=== PATIENT | male | born 1950 | race Caucasian/White ===

== ENCOUNTER → 2020-05-03 10:31 | Outpatient (BNVA) | payer MEDICARE, SELFPAY | PROVIDERS: PCP Family Medicine; Visit Provider Urology | DX: N40.1 Benign prostatic hyperplasia with lower urinary tract symptoms (principal); N13.8 Other obstructive and reflux uropathy; R35.1 Nocturia | CPT/HCPCS: Q3014 ==

== ENCOUNTER → 2021-06-12 08:26 | Outpatient (BNVA) | payer MEDICARE, BC, OTHER, SELFPAY | PROVIDERS: PCP Family Medicine; Visit Provider Urology | DX: N40.1 Benign prostatic hyperplasia with lower urinary tract symptoms (principal); N13.8 Other obstructive and reflux uropathy; R35.1 Nocturia | CPT/HCPCS: Q3014 ==

== ENCOUNTER → 2022-06-13 09:01 | Outpatient (BNVA) | payer MEDICARE, BC, OTHER, SELFPAY | PROVIDERS: PCP Family Medicine; Visit Provider Urology | DX: N40.1 Benign prostatic hyperplasia with lower urinary tract symptoms (principal); N13.8 Other obstructive and reflux uropathy; R35.1 Nocturia; R97.20 Elevated prostate specific antigen [PSA] | CPT/HCPCS: 51798; 99212 ==

== ENCOUNTER 2023-06-17 09:08 | Outpatient (AMB) | payer MEDICARE, BC, OTHER, SELFPAY ==
--- NOTE | 2023-06-17 09:26 | A.OFFVIS_ITS ---
Intake Intake Visit Reasons: 1Y PSA(set)Confirmed Intake Note: Patient is Present for Follow Up PSA/PVR Urology Medication: None Antibiotic Allergies:None Blood Thinners: Aspirin Confirmed Pharmacy: [facility] Reports no new Medications PVR: 47 Allergies No Known Allergies Allergy (Verified 06/17/23 09:29) Medication List - Last Reconciled 06/17/23 by Golden Lazo MD aspirin (Adult Low Dose Aspirin) 81 mg PO DAILY atorvastatin 80 mg PO BEDTIME finasteride 5 mg PO DAILY 90 days lisinopril 40 mg PO DAILY metoprolol succinate ER 50 mg PO DAILY nifedipine ER 30 mg PO DAILY HPI HPI Comments History of Present Illness Details David Atkins is a very pleasant male. He is a patient of Dr Godoy. He is seen for the following urologic conditions - lower urinary tract symptoms PSA rise to 5.1 Urinary parameters normal Discussed threshold for biopsy Will trial 5 AR with repeat PSA in 6 months SUN 2+ soft Elevated PSA/Abnormal SUN: Review in 12 months Current management is observation. Laboratory investigations include a total PSA evaluation December 2010 2.4, March 2011 2.1, September 2011 4.6, November 2011 2.2, May 2012 2.7, November 2012 2.9, November 2013 2.4, November 2015 3.2, September 2016 3.2, 02/28 3.2, 03/01 2.5, 03/02 2.8., 03/03 3.0, 06/05 3.5 (04/02 4.0), 06/05 4.0, 06/07 5.1 Imaging investigations include a transrectal ultrasound No a prostate MRI No Individualized Prostate Cancer Risk Calculator 5-10% high risk, Would like to continue with observation and understands and accepts the risks of a possible delay in diagnosis. A TRUS biopsy has not been performed Symptoms include weak stream, nocturia, x 2, and are stable 03/02 , weak stream, nocturia, x 2, x 3, and are worsening. - 05/03 nocturia 1-2 improving Overall symptoms are mild. His prior IPSS was mild. [facility] Medical History HTN (hypertension) Nocturia Benign prostatic hyperplasia without lower urinary tract symptoms Elevated PSA Review of Systems Const Denies chills and Denies fever(s) Card Reports no additional complaints and Denies syncope Resp Denies cough GI Denies abdominal pain and Denies heartburn Reports as per HPI and Denies change in libido Neuro Denies syncope Psych Denies change in libido Endo Denies change in libido Physical Exam Const General: cooperative, healthy appearing, comfortable and no acute distress Orientation/consciousness: patient oriented x3 HEENT Face and sinus: Yes normal facial exam Mouth: moist mucous membranes Neck Neck: Yes normal visual inspection, Yes full ROM and Yes trachea midline Chest Chest palpation & inspection: normal inspection of the chest Resp Effort & Inspection: normal respiratory effort, able to speak in complete sentences and no respiratory distress GI Inspection: Yes normal to inspection Rectal Exam - Male: Yes normal sphincter tone and Yes prostate normal Male General Exam: Yes normal external exam Penis: normal penis and circumcised Meatus: meatus normal Scrotum: scrotum normal Testes: Testes normal Back/Spine/Pelvis Cervical Spine: normal cervical lordosis Thoracic/Lumbar Spine: thoracic and lumbar spine normal to inspection Skin General skin exam: no rashes or lesions noted Neuro General: patient oriented x3, gait normal, tone normal and moves all extremities Extrem General: Yes normal to inspection and Yes capillary refill normal Office Procedures Post Void Residual Post Residual Void Post Void Residual (PVR): 47 [id number] Void Residual by ultrasound Assessment & Plan Assessment & Plan (1) Elevated PSA: Code(s): R97.20 - Elevated prostate specific antigen [PSA] (2) Nocturia: Code(s): R35.1 - Nocturia (3) BPH w urinary obs/LUTS: Code(s): N40.1 - Benign prostatic hyperplasia with lower urinary tract symptoms; N13.8 - Other obstructive and reflux uropathy Plan Trial finasteride Six-month follow-up PSA Orders: Orders AMB Post Void Residual by ultrasound Today N13.8 - Other obstructive and reflux uropathy, N40.1 - Benign prostatic hyperplasia with lower urinary tract symptoms PSA,Total (Free>4and<10) 6 Months R97.20 - Elevated prostate specific antigen [PSA] Medications: New finasteride 5 mg PO DAILY 90 tabs 1RF 90 days N13.8 - Other obstructive and reflux uropathy, N40.1 - Benign prostatic hyperplasia with lower urinary tract symptoms, R33.9 - Retention of urine, unspecified, R97.20 - Elevated prostate specific antigen [PSA] Patient Instructions: Imaging studies, laboratory and physical exam results were discussed and reviewed in detail. No major barriers to patient understanding were identified. An opportunity to ask questions regarding the treatment plan was provided. All questions were answered. The patient expressed understanding and agreement with the above treatment plan. The patient is aware they should contact our office by phone for worsening of their current condition or the appearance of new urologic symptoms. Compliance is encouraged with any medications and followup testing that is ordered. It is a privilege to participate in the urologic care of your patient. If you have any questions or concerns regarding treatment for the above conditions, or other urologic issues, please do not hesitate to contact me. The office telephone contact is [phone]. This note is constructed using voice recognition software. While every effort has been made to ensure accuracy latex foam worker errors may have been included. Yours sincerely, Dr Golden Lazo MD, [facility] - Urology Providers of Expert, Compassionate Care for the Genitourinary System Coding Level of Care Code Est Pt Level 4 (95223) Diagnoses Elevated PSA R97.20 Nocturia R35.1 BPH w urinary obs/LUTS N40.1; N13.8 CPT Codes Post Residual Void - PVR CPT Code: 69813-Mwde Void Residual by ultrasound ([id number])
== END 2023-06-17 10:14 | disposition home or self-care (01) ==
PROVIDERS: Visit Provider Urology
DX: N40.1 Benign prostatic hyperplasia with lower urinary tract symptoms (principal); R35.1 Nocturia; R97.20 Elevated prostate specific antigen [PSA]; N13.8 Other obstructive and reflux uropathy
CPT/HCPCS: 99213

== ENCOUNTER → 2023-06-17 09:08 | Outpatient (BNVA) | payer MEDICARE, BC, OTHER, SELFPAY | PROVIDERS: Visit Provider Urology | DX: N40.1 Benign prostatic hyperplasia with lower urinary tract symptoms (principal); N13.8 Other obstructive and reflux uropathy; R35.1 Nocturia; R97.20 Elevated prostate specific antigen [PSA] | CPT/HCPCS: 51798; 99212 ==

== ENCOUNTER 2023-12-18 08:24 | Outpatient (AMB) | payer MEDICARE, BC, OTHER, SELFPAY ==
--- NOTE | 2023-12-18 08:58 | A.OFFVIS_ITS ---
Intake Visit Reasons: 6M Follow Up-PSA(set) Intake Note: Patient is Present for Follow Up PSA Urology Medication:Finasteride Antibiotic Allergies: None Blood Thinners:Aspirin PSA Completed 11/25/23 Patient reports that he has improved since he has been on finasteride no complaints Pt denies any urinary issues or concerns Last PVR: 47mls Primer And Powder Canning Leader Required: No Coremaker Apprentice: Coremaker Apprentice Present Accompanied by: Spouse Allergies No Known Allergies Allergy (Verified 12/18/23 09:00) HPI Comments Details: David Atkins is a very pleasant male. He is a patient of Dr Godoy. He is seen for the following urologic conditions - lower urinary tract symptoms Finasteride and PSA has fallen to 2.8 Repeat PSA in 6 months SUN 2+ soft Elevated PSA/Abnormal SUN: Review in 12 months Current management is observation. Laboratory investigations include a total PSA evaluation December 2010 2.4, March 2011 2.1, September 2011 4.6, November 2011 2.2, May 2012 2.7, November 2012 2.9, November 2013 2.4, November 2015 3.2, September 2016 3.2, 02/28 3.2, 03/01 2.5, 03/02 2.8., 03/03 3.0, 06/05 3.5 (04/02 4.0), 06/05 4.0, 06/07 5.1, 12/05 2.8 Imaging investigations include a transrectal ultrasound No a prostate MRI No Individualized Prostate Cancer Risk Calculator 5-10% high risk, Would like to continue with observation and understands and accepts the risks of a possible delay in diagnosis. A TRUS biopsy has not been performed Symptoms include weak stream, nocturia, x 2, and are stable 03/02 , weak stream, nocturia, x 2, x 3, and are worsening. - 05/03 nocturia 1-2 improving Overall symptoms are mild. His prior IPSS was mild. [facility] Medical History HTN (hypertension) Nocturia Benign prostatic hyperplasia without lower urinary tract symptoms Elevated PSA Review of Systems Const Denies chills and Denies fever(s) Card Reports no additional complaints and Denies syncope Resp Denies cough GI Denies abdominal pain and Denies heartburn Reports as per HPI and Denies change in libido Neuro Denies syncope Psych Denies change in libido Endo Denies change in libido Physical Exam Const General: cooperative, healthy appearing, comfortable and no acute distress Orientation/consciousness: patient oriented x3 HEENT Face and sinus: Yes normal facial exam Mouth: moist mucous membranes Neck Neck: Yes normal visual inspection, Yes full ROM and Yes trachea midline Chest Chest palpation & inspection: normal inspection of the chest Resp Effort & Inspection: normal respiratory effort, able to speak in complete sentences and no respiratory distress GI Inspection: Yes normal to inspection Back/Spine/Pelvis Cervical Spine: normal cervical lordosis Thoracic/Lumbar Spine: thoracic and lumbar spine normal to inspection Skin General skin exam: no rashes or lesions noted Neuro General: patient oriented x3, gait normal, tone normal and moves all extremities Extrem General: Yes normal to inspection and Yes capillary refill normal Assessment & Plan Assessment & Plan (1) Elevated PSA: Code(s): R97.20 - Elevated prostate specific antigen [PSA] Category: Medical (2) Nocturia: Code(s): R35.1 - Nocturia Category: Medical Plan Six-month follow-up PSA tele Orders: Orders Prostate Specific Antigen 6 Months R97.20 - Elevated prostate specific antigen [PSA] Patient Instructions: Imaging studies, laboratory and physical exam results were discussed and reviewed in detail. No major barriers to patient understanding were identified. An opportunity to ask questions regarding the treatment plan was provided. All questions were answered. The patient expressed understanding and agreement with the above treatment plan. The patient is aware they should contact our office by phone for worsening of their current condition or the appearance of new urologic symptoms. Compliance is encouraged with any medications and followup testing that is ordered. It is a privilege to participate in the urologic care of your patient. If you have any questions or concerns regarding treatment for the above conditions, or other urologic issues, please do not hesitate to contact me. The office telephone contact is [phone]. This note is constructed using voice recognition software. While every effort has been made to ensure accuracy industrial renderer errors may have been included. Yours sincerely, Dr Golden Lazo MD, [facility] - Urology Providers of Expert, Compassionate Care for the Genitourinary System Coding Level of Care Code Est Pt Level 3 (53414) Diagnoses Elevated PSA R97.20 Nocturia R35.1
== END 2023-12-18 10:00 | disposition home or self-care (01) ==
PROVIDERS: PCP Family Medicine; Visit Provider Urology
DX: R97.20 Elevated prostate specific antigen [PSA] (principal); R35.1 Nocturia
CPT/HCPCS: 99213

== ENCOUNTER → 2023-12-18 08:24 | Outpatient (BNVA) | payer MEDICARE, BC, OTHER, SELFPAY | PROVIDERS: PCP Family Medicine; Visit Provider Urology | DX: R97.20 Elevated prostate specific antigen [PSA] (principal); R35.1 Nocturia | CPT/HCPCS: 99212 ==

== ENCOUNTER 2024-06-04 09:27 | Outpatient (REF) | payer MEDICARE, BC, OTHER, SELFPAY ==
--- OUTSIDE RECORDS SUMMARY | 2024-06-04 10:00 | XMS_ITS | Encounter Summary ---
Author Organization [facility] Address [address] [facility] [address] [place] [address] Phone Care Team Providers Care Rn Mental Health Name Role Phone John Godoy DO Primary Care Provider [phone] Reason for Visit * Reason Comments Med Refill Encounter Details Date Type Department Care Team (Late st Contact Info) Description 05/08/2024 Refill [facility] [address] [facility] [address] [place] [address] Samm Martines MD [address] [facility] [address] [place] [address] Social History Tobacco Use Types Packs/Day Years Used Date Smoking Tobacco: Never Smokeless Tobacco: Never Alcohol Use Standard Drinks/Week Comments Yes 0 (1 standard drink = 0.6 oz pure alcohol) Alcoholic Drinks/day: Occasional social drink Sex and Gender Information Value Date Recorded Sex Assigned at Not on file Legal Sex Male 4:51 PM EST Gender Identity Not on file Sexual Orientation Not on file documented as of this encounter Miscellaneous Notes * Addendum Note - Chi Gao MD - 05/11/2024 11:15 AM ESTAddended by: CHI GAO on: 05/11/2024 11:15 AM Modules accepted: Orders * Telephone Encounter - Chi Gao MD - 05/11/2024 11:14 AM EST Done documented in this encounter Plan of Treatment Upcoming Encounters Date Type Department Care Team (Late st Contact Info) Description 12/02/2024 1:30 PM EDT Office Visit [facility] [address] [place] [phone] Chi Gao MD [address] [id number] documented as of this encounter Visit Diagnoses Not on filedocumented in this encounter Care Teams Rn Mental Health Relationship Specialty Start Date End Date John Godoy DO [address] [place] [address] PCP - General 04/24/20 documented as of this encounter
--- OUTSIDE RECORDS SUMMARY | 2024-06-04 10:00 | XMS_ITS | Clinical Summary ---
Author Organization [facility] Address [address] [facility] [address] [place] [address] Phone Care Team Providers Care Supervisor Toy Assembly Name Role Phone John Godoy Primary Care Provider [phone] Allergies No known active allergies Medications Multiple Vitamin (MULTI-VITAMIN DAILY PO) Take 1 tablet by mouth 1 (one) time each day Active TURMERIC PO Take 2 capsules by mouth 1 (one) time each day Active Aspirin Adult Low Strength 81 MG EC tablet Take 81 mg by mouth 1 (one) time each day 1 Active cholecalciferol (VITAMIN D-3) 25 MCG (1000 UT) capsule Take 1 capsule by mouth 1 (one) time each day Active nitroglycerin (NITROSTAT) 0.[address] 1 TABLET UNDER TONGUE EVERY 5 MIN NEEDED FOR CHEST PAIN, MAX OF 3 DOSES/15 MIN CALL 911/SEEK MEDICAL ATTENTION IF PAIN PERSISTS 1 Active simvastatin (ZOCOR) 20 MG tablet Take 20 mg by mouth every night 1 Active Brilinta 90 MG tablet Take 1 tablet (90 mg total) by mouth in the morning and 1 tablet (90 mg total) in the evening. 60 tablet 3 2 Active atorvastatin (LIPITOR) 80 MG tablet Take 1 tablet (80 mg total) by mouth 1 (one) time each day 90 tablet 3 2 Active metoprolol succinate XL (TOPROL XL) 50 MG 24 hr tablet Take 1 tablet (50 mg total) by mouth 1 (one) time each day Do not crush or chew. 90 tablet 3 4 Active NIFEdipine XL (PROCARDIA XL) 30 MG 24 hr tablet Take 1 tablet (30 mg total) by mouth 1 (one) time each day DO NOT CRUSH CHEW OR SPLIT 90 tablet 3 4 Active finasteride (PROSCAR) 5 MG tablet 4 Active Lancets (freestyle) lancets USE TO CHECK BLOOD SUGAR TWICE DAILY 4 Active FREESTYLE LITE test strip USE TO CHECK BLOOS SUGAR TWICE DAILY 4 Active metFORMIN XR (GLUCOPHAGE-XR) 500 MG 24 hr tablet Take 500 mg by mouth 1 (one) time each day 4 Active lisinopril 40 MG tablet Take 1 tablet (40 mg total) by mouth 1 (one) time each day 90 tablet 3 5 Active lisinopril 40 MG tablet Take 1 tablet (40 mg total) by mouth 1 (one) time each day 90 tablet 3 4 05/11/19 25 Discontinu ed(Reorder (does not appear on AVS)) Active Problems Problem Noted Date Diagnosed Date Hypophosphatemia 12/04/2023 Glucose level outside reference range 01/02/2023 Adenomatous polyp of colon 01/02/202301/02 Overview (01/02/2023): 06/08/2012-Pleet Degenerative joint disease of hand 01/02/2023 01/02/2023 Fatigue 01/02/2023 01/02/2023 Prostate specific antigen above reference range 01/02/2023 Overview (01/02/2023): Dr. Lazo Shoulder pain 01/02/2023 01/02/2023 Chronic kidney disease, stage 2 (mild) Coronary atherosclerosis 09/18/2020 023 Aneurysm of ascending aorta 09/13/2020 0904/2022 Overview (01/02/2023): cardiology following Hyperlipidemia 09/13/2020 01/02/2023 Benign essential hypertension 09/04/2020 Hypertensive renal disease 09/04/2020 Resolved Problems Problem Noted Date Diagnosed Date Resolved Date Chronic kidney disease stage 3 09/04/2020 12/08/2020 Encounters Date Type Department Care Team Description 05/11/2024 Refill [facility] [address] [place] [id number] Samm Martines MD 05/08/2024 Refill [facility] [address] [facility] [facility] [address] [place] [address] Samm Martines MD from Last 3 Months Immunizations Name Administration Dates Next Due Influenza, Recombinant, Quadrivalent, Pf 020 Influenza, Unspecified 01/26/2020,04/24/2019 Pfizer SARS-COV-2 07/10/2020,06/19/2020 Pneumococcal Conjugate 13-Valent 04/24/2019 Family History Medical History Relation Comments Diabetes Child Type 1 Cancer Father Heart disease Father Hypertension Mother Relation Status Comments Child Father Mother Social History Tobacco Use Types Packs/Day Years [...] on file Sexual Orientation Not on file Last Filed Vital Signs Vital Sign Reading Time Taken Comments Blood Pressure 105/64 12/04/2023 1:55 PM EDT Pulse 66 12/04/2023 1:55 PM EDT Temperature - - Respiratory Rate - - Oxygen Saturation 98% 12/08/2020 9:19 AM EDT Inhaled Oxygen Concentration - - Weight 90.7 kg (200 lb) 12/04/2023 1:55 PM EDT Height 172.7 cm (5' 8 ) 12/08/2020 9:19 AM EDT Body Mass Index 30.41 12/08/2020 9:19 AM EDT Plan of Treatment Upcoming Encounters Date Type Department Care Team (Late st Contact Info) Description 12/02/2024 1:30 PM EDT Office Visit [facility] [address] [place] [address] Chi Montelongo MD [address] [facility] [address] [place] [address] Health Maintenance Due Date Last Done Comments Colorectal Cancer Screening: Annual FOBT 1998 Colorectal Cancer Screening: Colonoscopy 1998 Colorectal Cancer Screening: Sigmoidoscopy 1998 Pneumococcal Vaccine: 65+ Years (2 of 2 - PPSV23 or PCV20) 06/19/2019 04/24/2019 Influenza Vaccine (#1) 2023 0, 01/26/2020, 04/24/2019 Hepatitis B Vaccine Aged Out No longe r eligible based on patient's age to complete this topic Insurance [facility] MEDICARE [facility] MEDICARE Care Teams Supervisor Toy Assembly Relationship Specialty Start Date End Date John Godoy DO [address] [place] [address] PCP - General 04/24/20
--- OUTSIDE RECORDS SUMMARY | 2024-06-04 10:00 | XMS_ITS | Clinical Summary ---
Author Organization [facility] [address] Address [address] [facility] [place] [address] Phone Care Team Providers Care Decal Cutter Name Role Phone John Godoy DO Primary Care Provider [phone] Allergies No known active allergies Medications nitroglycerin (NITROSTAT) 0.[address] 1 Tablet under the tongue every 5 minutes as needed for Chest pain (up to 3 doses and if no relief, call 911). 08/14/2023 Active ZINC ORAL Take 50 mg by mouth daily. Active atorvastatin (LIPITOR) 80 mg tablet Take 1 tablet (80 mg total) by mouth 1 (one) time each day. Active metoprolol succinate (TOPROL-XL) 50 mg 24 hr tablet Take 1 tablet (50 mg total) by mouth 1 (one) time each day. Active aspirin 81 mg EC tablet Take 81 mg by mouth daily. Active lisinopril (PRINIVIL,ZESTR IL) 40 mg tablet Take 1 tablet (40 mg total) by mouth 1 (one) time each day. Active MULTIVITAMIN ORAL Take by mouth. Active TURMERIC ORAL 1000mg in the am & 500mg in the evening Active finasteride (PROSCAR) 5 mg tablet Take 1 tablet (5 mg total) by mouth 1 (one) time each day. Do not crush, chew, or split. Active metFORMIN (GLUCOPHAGE) 500 mg tablet Take 1 tablet (500 mg total) by mouth at bedtime. Active NIFEdipine XL (PROCARDIA XL) 30 mg 24 hr tablet Take 1 tablet (30 mg total) by mouth 1 (one) time each day before breakfast. Do not crush, chew, or split. Active ascorbic acid (VITAMIN C) 250 MG chewable tablet Chew 1 tablet (250 mg total) 1 (one) time each day. Active Active Problems Problem Noted Date Diagnosed Date Coronary artery disease invo lving eastern shoshone coronary artery of eastern shoshone heart without angina pectoris 09/18/2020 Assessment & Plan (03/30/2024 11:36 AM EST): The patient has a history of remote LAD stenting. He has preserved left ventricular systolic function. He is on appropriate secondary prevention therapy including low-dose aspirin and high-dose atorvastatin. His LDL cholesterol goal is less than 70 mg/dL. I do not have the results of his most recent lipid profile. I urged the patient to work on behavioral changes aimed at sustained and meaningful weight reduction and improved fitness. I am not making any changes in his medical regimen. Orders: ECG 12 lead Benign essential hypertension 09/13/2020 Assessment & Plan (03/30/2024 11:36 AM EST): Blood pressures have been well-controlled. I will continue the present medical regimen. The patient has been monitoring his blood pressures at home. He understands the importance of hypertension control in the setting of thoracic aortic aneurysm. Orders: ECG 12 lead Mixed hyperlipidemia 09/13/2020 Assessment & Plan (03/30/2024 11:36 AM EST): Patient is treated with high-dose atorvastatin given his history of coronary artery disease. He does not have active symptoms of vascular insufficiency. He has normal pulsations in his feet and no carotid bruits. High-dose atorvastatin will be continued. This medication has been well-tolerated. Orders: ECG 12 lead Thoracic aortic aneurysm without rupture Assessment & Plan (03/30/2024 11:36 AM EST): The patient continues to have surveillance echocardiography to assess his ascending aortic aneurysm. His recent study demonstrates a maximal diameter of 4.6 cm. This is unchanged over the past couple of years. We will continue annual surveillance echocardiography. We reviewed precautionary measures including extremely heavy lifting and blood pressure control to reduce the incidence of aneurysm growth and rupture. Orders: ECG 12 lead Transthoracic echocardiogram (TTE) complete with PRN contrast, bubble, strain, and 3D order panel; Future Encounters Date Type Department Care Team Description 03/30/2024 10:50 AM EST Office Visit [facility] [address] [place] [address] Nazario Godinez MD Coronary artery disease involving eastern shoshone coronary artery of eastern shoshone heart without angina pectoris (Primary Dx); Benign essential hypertension; Mixed hyperlipidemia; Aneurysm of ascending aorta without rupture (CMS/HCC) from Last 3 Months Surgical History Surgery Date Site/Laterality Comments OTHER SURGICAL HISTORY PROCEDURE: HISTORY OTHER; COMMENT: Partial colon resection secondary to polyp Medical History Medical History Date Comments Elevated prostate specific antigen (PSA) DX:Elevated prostate specific antigen (PSA) Fatigue DX:Fatigue Osteoarthritis of hand DX:Osteoa rthritis of hand Other abnormal glucose DX:Other abnormal glucose Shoulder pain, right DX:Shoulder pain, right Tubulovillous adenoma of colon D X:Tubulovillous adenoma of colon Family History Medical History Relation Name Comments Other: Other Father at 67 from asbestosis Other: Other Mother at 101 with fall &subsequent complication Relation Name Status Comments Father Mother Social History Tobacco Use Types Packs/Day Years Used Date Smoking Tobacco: Never Smokeless Tobacco: Never Alcohol Use Standard Drinks/Week Comments Not Currently 0 (1 standard drink = 0.6 oz pur e alcohol) Sex and Gender Information Value Date Recorded Sex Assigned at Not on file Legal Sex Male 5:09 AM EST Gender Identity Not on file Sexual Orientation Not on file Obstetrics History Last Filed Vital Signs Vital Sign Reading Time Taken Comments Blood Pressure 120/84 03/30/2024 10:45 AM EST Pulse 73 03/30/2024 10:45 AM EST Temperature - - Respiratory Rate - - Oxygen Saturation 98% 03/30/2024 10:45 AM EST Inhaled Oxygen Concentration - - Weight 91.7 kg (202 lb 1.6 oz) 03/30/2024 10:45 AM EST Height 172.7 cm (5' 8 ) 03/30/2024 10:45 AM EST Body Mass Index 30.73 03/30/2024 10:45 AM EST Plan of Treatment Upcoming Encounters Date Type Department Care Team (Late st Contact Info) Description 03/30/2025 10:00 AM EST Ancillary Procedure [facility] [address] [place] [address] Health Maintenance Due Date Last Done Comments Zoster Vaccines (1 of 2) 1999 Cholesterol Screening (Lipid Panel) 03/23/2022 Colorectal Cancer Screening: Colonoscopy 03/23/2022 Depression Screening 03/23/2022 Falls Risk Assessment 03/23/2022 Hepatitis C Screening 03/23/2022 Social Influencers of Health Screening 03/23/2022 Hypertension/CHF/CAD Annual BMP Blood Test 03/24/2022 Medicare Annual Wellness Visit 02/14/2023 02/14/2022 COVID-19 Vaccine ( season) 2023 07/10/2020, 06/19/2020 RSV Immunization Patients 60+ Years Old (1 - 1-dose 75+ series) 2024 DTaP,Tdap,and Td Vaccines (2 - Td or Tdap) 02/15/2032 02/14/2022 Pneumococcal Vaccine: 50+ Years Completed 02/18/2022, 04/24/2019 Influenza Vaccine Completed 01/28/2024, , 02/01/2022, Additional history exists HIB Vaccines Aged Out No longer eligi ble based on patient's age to complete this topic HPV Vaccines Aged Out No longer eligi ble based on patient's age to complete this topic Hepatitis A Vaccines Aged Out No long er eligible based on patient's age to complete this topic Hepatitis B Vaccines Aged Out No long er eligible based on patient's age to complete this topic IPV Vaccines Aged Out No longer eligi ble based on patient's age to complete this topic MMR Vaccines Aged Out No longer eligi ble based on patient's age to complete this topic Meningococcal ACWY Vaccine Aged Out N o longer eligible based on patient's age to complete this topic Meningococcal B Vacine Aged Out No lo nger eligible based on patient's age to complete this topic RSV Immunization Patients Under 20 months Aged Out No longer eligible based on patient's age to complete this topic Varicella Vaccines Aged Out No longer eligible based on patient's age to complete this topic Procedures Procedure Name Priority Date/Time Associated Diagnosis Comments ECG 12-LEAD Routine 03/30/2024 10:49 AM EST Coronary artery disease involving eastern shoshone coronary artery of eastern shoshone heart without angina pectoris Benign essential hypertension Mixed hyperlipidemia Aneurysm of ascending aorta without rupture (CMS/HCC) from Last 3 Months Results * ECG 12 lead (03/30/2024 10:49 AM EST) Ventricular Rate ECG 73 BPM GEMUSE Atrial Rate 73 BPM GEMUSE P-R Interval 254 ms GEMUSE QRS Duration 104 ms GEMUSE Q-T Interval 396 ms GEMUSE QTc 436 ms GEMUSE P Wave Unity 23 degrees GEMUSE R Unity 35 degrees GEMUSE T Unity 69 degrees GEMUSE ECG Interpretation Sinus rhythm with 1st degree A-V block Nonspecific T wave abnormality Abnormal ECG No previous ECGs available Confirmed by NAZARIO GODINEZ ([id number]) on 03/30/2024 11:25:12 AM GEMUSE 03/30/2024 10:4 9 AM EST 03/30/2024 11:25 AM EST Nazario Godinez MD ECG ORDERABLES Final Result GEMUSE from Last 3 Months Insurance MEDICARE [facility] Care Teams Decal Cutter Relationship Specialty Start Date End Date John Godoy DO [address] [place], [place] PCP - General 01/10/14
--- OUTSIDE RECORDS SUMMARY | 2024-06-04 10:00 | XMS_ITS | Encounter Summary ---
Author Organization [facility] Address [address] [facility] [address] [place] [address] Phone Care Team Providers Care Labor Expediter Name Role Phone John Godoy DO Primary Care Provider [phone] Reason for Visit * Reason Comments Med Refill Encounter Details Date Type Department Care Team (Late st Contact Info) Description 05/11/2024 Refill [facility] [address] [facility] [address] [place] [address] Samm Martines MD [address] [address] Social History Tobacco Use Types Packs/Day [...] on file documented as of this encounter Plan of Treatment Upcoming Encounters Date Type Department Care Team (Late st Contact Info) Description 12/02/2024 1:30 PM EDT [facility] Visit [facility] [address] [place] [id number] Chi Montelongo MD [address] [address] documented as of this encounter Visit Diagnoses Not on filedocumented in this encounter Care Teams Labor Expediter Relationship Specialty Start Date End Date John Godoy DO [address] [place] [address] PCP - General 04/24/20 documented as of this encounter
--- OUTSIDE RECORDS SUMMARY | 2024-06-04 10:00 | XMS_ITS | Encounter Summary ---
Author Organization [facility] Address [address] [place] [address] Phone Care Team Providers Care Power Saw Mechanic Name Role Phone John Godoy DO Primary Care Provider [phone] Encounter Details Date Type Department Care Team ([facility] Contact Info) Description 06/20/2021 Telephone [facility] [address] [facility] [address] [place] [address] Chi Montelongo MD [address] [address] Social History Tobacco Use Types Packs/Day Years Used Date Smoking Tobacco: Never Alcohol Use Standard Drinks/Week Comments Yes 0 (1 standard drink = 0.6 oz pure alcohol) Alcoholic Drinks/day: Occasional social drink Sex and Gender Information Value Date Recorded Sex Assigned at Not on file Legal Sex Male 4:51 PM EST Gender Identity Not on file Sexual Orientation Not on file documented as of this encounter Miscellaneous Notes * Telephone Encounter - Melanie Babb - 06/20/2021 1:02 PM EST Pt called, he needs a refill for atorvastatin, nifedipine, and brilinta. Please send [facility] [place] Thank you documented in this encounter Plan of Treatment Upcoming Encounters Date Type Department Care Team ([facility] Contact Info) Description 12/02/2024 1:30 PM EDT Office Visit [facility] [address] [place] [phone] Chi Montelongo MD [address] [address] documented as of this encounter Visit Diagnoses Not on filedocumented in this encounter Care Teams Power Saw Mechanic Relationship Specialty Start Date End Date John Godoy DO [address] [place] [address] PCP - General 04/24/20 documented as of this encounter
[2024-06-04 11:06] LABS: Prostate Specific Antigen 2.22 ng/mL (<0.05-4.0)
== END 2024-06-04 09:28 | disposition home or self-care (01) ==
LOC: HO.10HDL 09:27
PROVIDERS: Visit Provider Urology
DX: R97.20 Elevated prostate specific antigen [PSA] (principal); Z12.5 Encounter for screening for malignant neoplasm of prostate
CPT/HCPCS: 36415; 84153

== ENCOUNTER 2024-06-17 07:33 | Outpatient (AMB) | payer MEDICARE, BC, OTHER, SELFPAY ==
--- NOTE | 2024-06-17 07:34 | A.OFFVIS_ITS ---
Intake Visit Reasons: 6m/PSA(set) Intake Note: Pt presents to the office today as a telehealth visit for a 6 month follow up PSA. Allergies No Known Allergies Allergy (Verified 06/17/24 07:34) HPI Comments Details: David Atkins is a very pleasant male. He is a patient of Dr Godoy. He is seen for the following urologic conditions - lower urinary tract symptoms Telemedicine Evaluation 15 min Consultation D[employer] Video Finasteride and PSA has fallen to 2.2 Repeat PSA in 6 months in office SUN 2+ soft Elevated PSA/Abnormal SUN: Review in 12 months Current management is observation. Laboratory investigations include a total PSA evaluation December 2010 2.4, March 2011 2.1, September 2011 4.6, November 2011 2.2, May 2012 2.7, November 2012 2.9, November 2013 2.4, November 2015 3.2, September 2016 3.2, 02/28 3.2, 03/01 2.5, 03/02 2.8., 03/03 3.0, 06/05 3.5 (04/02 4.0), 06/05 4.0, 06/07 5.1, 12/05 2.8, 06/08 2.2 Imaging investigations include a transrectal ultrasound No a prostate MRI No Individualized Prostate Cancer Risk Calculator 5-10% high risk, Would like to continue with observation and understands and accepts the risks of a possible delay in diagnosis. A TRUS biopsy has not been performed Symptoms include weak stream, nocturia, x 2, and are stable 03/02 , weak stream, nocturia, x 2, x 3, and are worsening. - 05/03 nocturia 1-2 improving Overall symptoms are mild. His prior IPSS was mild. [facility] Medical History HTN (hypertension) Nocturia Benign prostatic hyperplasia without lower urinary tract symptoms Elevated PSA Review of Systems Const All systems reviewed & are unremarkable except as noted in HPI and below Reports no additional complaints Resp Reports no additional complaints GI Reports no additional complaints Reports as per HPI Musc Reports no additional complaints Physical Exam Telemedicine evaluation Appropriate responses Regular breathing rate and rhythm HEENT Head: Yes normal to inspection Ears: hearing grossly normal bilaterally Eyes General: appearance normal, both eyes and all related structures Neck Neck: Yes normal visual inspection Chest Chest palpation & inspection: normal inspection of the chest Resp Effort & Inspection: normal respiratory effort and able to speak in complete sentences Telehealth Telehealth Telehealth Platform: [employer] Location of provider rendering services: practice address Location of patient: address on file Patient Identification confirmed using: Name, : Yes Telehealth method: video Patient verbally consented to treatment: Yes Patient verbally consented to billing insurance company: Yes Patient informed of any privacy concerns related to visit: Yes Minutes spent on Phone/Video with Pt.: 15 Assessment & Plan Assessment & Plan (1) BPH w urinary obs/LUTS: Code(s): N40.1 - Benign prostatic hyperplasia with lower urinary tract symptoms; N13.8 - Other obstructive and reflux uropathy Category: Medical (2) Elevated PSA: Code(s): R97.20 - Elevated prostate specific antigen [PSA] Category: Medical Plan Six-month follow-up repeat PSA Orders: Orders Prostate Specific Antigen 6 Months R97.20 - Elevated prostate specific antigen [PSA] Patient Instructions: This note is constructed using voice recognition software. While every effort has been made to ensure accuracy vending route servicer errors may have been included. Imaging studies, laboratory and physical exam results were discussed and reviewed in detail. No major barriers to patient understanding were identified. An opportunity to ask questions regarding the treatment plan was provided. All questions were answered. The patient expressed understanding and agreement with the above treatment plan. The patient is aware they should contact our office by phone for worsening of their current condition or the appearance of new urologic symptoms. Compliance is encouraged with any medications and followup testing that is ordered. It is a privilege to participate in the urologic care of your patient. If you have any questions or concerns regarding treatment for the above conditions, or other urologic issues, please do not hesitate to contact me. The office telephone contact is [phone]. Sincerely, Dr Golden Lazo MD, [facility] - Urology Compassionate Specialist Care for the Genitourinary System Coding Level of Care Code Tele Est Pt Level 3 (02889) Complex EM visit Add On G2211 Diagnoses BPH w urinary obs/LUTS N40.1; N13.8 Elevated PSA R97.20
--- OUTSIDE RECORDS SUMMARY | 2024-06-17 07:37 | XMS_ITS | Encounter Summary ---
Author Organization [facility] Address [address] [place] [address] Phone Care Team Providers Care Calender Roll Press Operator Name Role Phone John Godoy DO Primary Care Provider [phone] Encounter Details Date Type Department Care Team ([facility] Contact Info) Description 06/20/2021 Telephone [facility] [address] [facility] [address] [place] [address] Chi Montelongo MD [address] [address] Social History Tobacco Use Types [...] to [facility] [place] Thank you documented in this encounter Plan of Treatment Upcoming Encounters Date Type Department Care Team ([facility] Contact Info) Description 12/02/2024 1:30 PM EDT Office Visit [facility] [address] [place] [phone] Chi Montelongo MD [address] [address] documented as of this encounter Visit Diagnoses Not on filedocumented in this encounter Care Teams Calender Roll Press Operator Relationship Specialty Start Date End Date John Godoy DO [address] [place] [address] PCP - General 04/24/20 documented as of this encounter
--- OUTSIDE RECORDS SUMMARY | 2024-06-17 07:37 | XMS_ITS | Clinical Summary ---
Author Organization [facility] Address [address] [facility] [address] [place] [address] Phone Care Team Providers Care Envelope Addresser Name Role Phone John Godoy Primary Care Provider [phone] Allergies No known active allergies Medications Multiple [...] each day 90 tablet 3 5 Active Active Problems Problem Noted Date Diagnosed Date Hypophosphatemia 12/04/2023 Glucose level outside reference range 01/02/2023 Adenomatous polyp of colon 01/02/202301/02 Overview (01/02/2023): 06/08/2012-Pleet Degenerative joint disease of hand 01/02/2023 01/02/2023 Fatigue 01/02/2023 01/02/2023 Prostate specific antigen above reference range 01/02/2023 Overview (01/02/2023): Dr. Lazo Shoulder pain 01/02/2023 01/02/2023 Chronic kidney disease, stage 2 (mild) Coronary atherosclerosis 09/18/2020 023 Aneurysm of ascending aorta 09/13/202012/14 Overview (01/02/2023): cardiology following Hyperlipidemia 09/13/2020 01/02/2023 Benign essential hypertension 09/04/2020 Hypertensive renal disease 09/04/2020 Resolved Problems Problem Noted Date Diagnosed Date Resolved Date Chronic kidney disease stage 3 09/04/2020 12/08/2020 Encounters Date Type Department Care Team Description 05/11/2024 Refill [facility] [address] [place] [address] Samm Martines MD 05/08/2024 Refill [facility] [address] [place] [phone] Samm Martines MD from Last 3 Months [...] Office Visit [facility] [address] [place] [phone] Chi Montelongo MD [address] [facility] [address] [place] [address] Health Maintenance Due Date Last Done Comments Colorectal Cancer Screening: Annual FOBT 1998 Colorectal Cancer Screening: Colonoscopy 1998 Colorectal Cancer Screening: Sigmoidoscopy 1998 Pneumococcal Vaccine: 65+ Years (2 of 2 - PPSV23 or PCV20) 06/19/2019 04/24/2019 Influenza Vaccine (#1) 2023 0, 01/26/2020, 04/24/2019 Hepatitis B Vaccine Aged Out No longe r eligible based on patient's age to complete this topic Insurance [facility] MEDICARE [facility] MEDICARE Care Teams Envelope Addresser Relationship Specialty Start Date End Date John Godoy DO [address] [place] [address] PCP - General 04/24/20
== END 2024-06-17 10:01 | disposition home or self-care (01) ==
LOC: HO.HUSH 07:33
PROVIDERS: PCP Family Medicine; Visit Provider Urology
DX: N40.1 Benign prostatic hyperplasia with lower urinary tract symptoms (principal); N13.8 Other obstructive and reflux uropathy; R97.20 Elevated prostate specific antigen [PSA]
CPT/HCPCS: 99213; G2211

== ENCOUNTER 2024-12-21 08:44 | Outpatient (AMB) | payer MEDICARE, BC, OTHER, SELFPAY ==
--- NOTE | 2024-12-21 08:53 | A.OFFVIS_ITS ---
Intake Visit Reasons: 6m/PSA Intake Note: Pt presents to the office today as a telehealth visit for a 6 month follow up UROLOGY MEDICATIONS: FINASTERIDE BLOOD THINNERS: NONE LABS DONE 12/06/24: PSA 2.1 Entry Level Recruiter Required: No Accompanied by: Self / Same As Patient Allergies No Known Allergies Allergy (Verified 12/21/24 08:54) HPI Comments Details: David Atkins is a very pleasant male. He is a patient of Dr Godoy. He is seen for the following urologic conditions - lower urinary tract symptoms PSA has remained in the low range SUN 2+ soft May reduce finasteride to Friday, Friday, Friday Did notice that he has had hair growth He is very happy about the side effect Elevated PSA/Abnormal SUN: Review in 12 months Current management is observation. Laboratory investigations include a total PSA evaluation December 2010 2.4, March 2011 2.1, September 2011 4.6, November 2011 2.2, May 2012 2.7, November 2012 2.9, November 2013 2.4, November 2015 3.2, September 2016 3.2, 02/28 3.2, 03/01 2.5, 03/02 2.8., 03/03 3.0, 06/05 3.5 (04/02 4.0), 06/05 4.0, 06/07 5.1, 12/05 2.8, 06/08 2.2, 12/06 2.1 Imaging investigations include a transrectal ultrasound No a prostate MRI No Individualized Prostate Cancer Risk Calculator 5-10% high risk, Would like to continue with observation and understands and accepts the risks of a possible delay in diagnosis. A TRUS biopsy has not been performed Symptoms include weak stream, nocturia, x 2, and are stable 03/02 , weak stream, nocturia, x 2, x 3, and are worsening. - 05/03 nocturia 1-2 improving Overall symptoms are mild. His prior IPSS was mild. [facility] Medical History HTN (hypertension) Nocturia Benign prostatic hyperplasia without lower urinary tract symptoms Elevated PSA Review of Systems Const Denies chills and Denies fever(s) Card Reports no additional complaints and Denies syncope Resp Denies cough GI Denies abdominal pain and Denies heartburn Reports as per HPI and Denies change in libido Neuro Denies syncope Psych Denies change in libido Endo Denies change in libido Physical Exam Const General: cooperative, healthy appearing, comfortable and no acute distress Orientation/consciousness: patient oriented x3 HEENT Face and sinus: Yes normal facial exam Mouth: moist mucous membranes Neck Neck: Yes normal visual inspection, Yes full ROM and Yes trachea midline Chest Chest palpation & inspection: normal inspection of the chest Resp Effort & Inspection: normal respiratory effort, able to speak in complete sentences and no respiratory distress GI Inspection: Yes normal to inspection Back/Spine/Pelvis Cervical Spine: normal cervical lordosis Thoracic/Lumbar Spine: thoracic and lumbar spine normal to inspection Skin General skin exam: no rashes or lesions noted Neuro General: patient oriented x3, gait normal, tone normal and moves all extremities Extrem General: Yes normal to inspection and Yes capillary refill normal Assessment & Plan Assessment & Plan (1) Elevated PSA: Code(s): R97.20 - Elevated prostate specific antigen [PSA] Category: Medical (2) BPH w urinary obs/LUTS: Code(s): N40.1 - Benign prostatic hyperplasia with lower urinary tract symptoms; N13.8 - Other obstructive and reflux uropathy Category: Medical Plan Twelve month follow-up PSA Orders: Orders Prostate Specific Antigen 12 Months R97.20 - Elevated prostate specific antigen [PSA] Patient Instructions: This note is constructed using voice recognition software. While every effort has been made to ensure accuracy information technology consultant errors may have been included. Imaging studies, laboratory and physical exam results were discussed and reviewed in detail. No major barriers to patient understanding were identified. An opportunity to ask questions regarding the treatment plan was provided. All questions were answered. The patient expressed understanding and agreement with the above treatment plan. The patient is aware they should contact our office by phone for worsening of their current condition or the appearance of new urologic symptoms. Compliance is encouraged with any medications and followup testing that is ordered. It is a privilege to participate in the urologic care of your patient. If you have any questions or concerns regarding treatment for the above conditions, or other urologic issues, please do not hesitate to contact me. The office telephone contact is [phone]. Sincerely, Dr Golden Lazo MD, [facility] - Urology Compassionate Specialist Care for the Genitourinary System Coding Level of Care Code Est Pt Level 3 (54935) Complex EM visit Add On G2211 Diagnoses Elevated PSA R97.20 BPH w urinary obs/LUTS N40.1; N13.8
--- OUTSIDE RECORDS SUMMARY | 2024-12-21 09:53 | XMS_ITS | Clinical Summary ---
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 09/18/2020 Assessment & [...] 12 lead Thoracic aortic aneurysm without rupture (CMS/HC C V24) 09/13/2020 Assessment & Plan (03/30/2024 11:36 AM [...] bubble, strain, and 3D order panel; Future Surgical History Surgery Date Site/Laterality Comments OTHER [...] Description 03/30/2025 10:00 AM EST Ancillary Procedure [facility] [address] [facility] [address] [place] [address] Health Maintenance Due Date Last Done Comments Zoster Vaccines (1 of 2) 1999 Cholesterol Screening (Lipid Panel) 03/23/2022 Colorectal Cancer Screening: Colonoscopy 03/23/2022 Falls Risk Assessment 03/23/2022 Hepatitis C Screening 03/23/2022 Social Influencers of Health Screening 03/23/2022 Hypertension/CHF/CAD Annual BMP Blood Test 03/24/2022 Medicare Annual Wellness Visit 02/14/2023 02/14/2022 RSV Immunization Adult Patients (1 - 1-dose 75+ series) 2024 Depression Screening 04/14/2024 COVID-19 Vaccine (3 - 2024- season) 2024 07/10/2020, 06/19/2020 Influenza Vaccine (#1) 2024 , 02/06/2023, 02/01/2022, Additional history exists DTaP,Tdap,and Td Vaccines (2 - Td or Tdap) 02/15/2032 02/14/2022 Pneumococcal Vaccine: 50+ Years Completed 02/18/2022, 04/24/2019 HIB Vaccines Aged Out No longer eligi [...] age to complete this topic Meningococcal B Vaccine Aged Out No l onger eligible based on patient's age to complete this topic RSV Immunization Patients Under 20 months Aged Out No longer eligible based on patient's age to complete this topic Varicella Vaccines Aged Out No longer eligible based on patient's age to complete this topic Insurance MEDICARE [facility] Care Teams Artillery Meteorological Man Relationship Specialty Start Date End Date John Godoy DO [address] [place], [place] PCP - General 01/10/14
--- OUTSIDE RECORDS SUMMARY | 2024-12-21 09:53 | XMS_ITS | Encounter Summary ---
Author Organization [facility] Address [address] [facility] [address] [place] [address] Phone Care Team Providers Care Rig Superintendent Name Role Phone Sharon Mcmahon Md Primary Care Provider [phone] Encounter Details Date Type Department Care Team ([facility] Contact Info) Description 06/20/2021 Telephone [facility] [address] [facility] [address] [place] [address] Chi Montelongo MD [address] [facility] [address] [place] [address] Social History Tobacco Use Types [...] and brilinta. Please send to [facility] [place] Thank you documented in this encounter Plan of Treatment Upcoming Encounters Date Type Department Care Team ([facility] Contact Info) Description 12/01/2025 1:30 PM EDT Office Visit [facility] [place] [address] [place] [address] Chi Montelongo MD [address] [phone] documented as of this encounter Visit Diagnoses Not on filedocumented in this encounter Care Teams Rig Superintendent Relationship Specialty Start Date End Date Sharon Mcmahon Md [address] [place] [id number] PCP - General 12/02/24 documented as of this encounter
--- OUTSIDE RECORDS SUMMARY | 2024-12-21 09:53 | XMS_ITS | Clinical Summary ---
Author Organization [facility] Address [address] [facility] [address] [place] [address] Phone Care Team Providers Care Asset Management Analyst Name Role Phone Sharon Mcmahon Md Primary Care Provider [phone] Allergies No known active allergies Medications Multiple Vitamin (MULTI-VITAMIN DAILY PO) Take 1 tablet by mouth 1 (one) time each day Active TURMERIC PO Take 2 capsules by mouth 1 (one) time each day Active Aspirin Adult Low Strength 81 MG EC tablet Take 81 mg by mouth 1 (one) time each day 08/27/19 21 Active nitroglycerin (NITROSTAT) 0.[address] 1 TABLET UNDER TONGUE EVERY 5 MIN NEEDED FOR CHEST PAIN, MAX OF 3 DOSES/15 MIN CALL 911/SEEK MEDICAL ATTENTION IF PAIN PERSISTS 08/27/19 21 Active atorvastatin (LIPITOR) 80 MG tablet Take 1 tablet (80 mg total) by mouth 1 (one) time each day 90 tablet 3 06/26/19 22 Active finasteride (PROSCAR) 5 MG tablet 12/01/19 24 Active Lancets (freestyle) lancets USE TO CHECK BLOOD SUGAR TWICE DAILY 10/06/19 24 Active FREESTYLE LITE test strip USE TO CHECK BLOOS SUGAR TWICE DAILY 10/04/19 24 Active metFORMIN XR (GLUCOPHAGE-XR ) 500 MG 24 hr tablet Take 500 mg by mouth 1 (one) time each day 09/22/19 24 Active lisinopril 40 MG tablet Take 1 tablet (40 mg total) by mouth 1 (one) time each day 90 tablet 3 05/11/19 25 Active NIFEdipine XL (PROCARDIA XL) 30 MG 24 hr tablet TAKE 1 TABLET(30 MG) BY MOUTH 1 TIME EACH DAY. DO NOT CRUSH CHEW OR SPLIT 90 tablet 3 10/09/19 25 Active metoprolol succinate XL (TOPROL XL) 50 MG 24 hr tablet Take 1 tablet (50 mg total) by mouth 1 (one) time each day DO NOT CRUSH OR CHEW 90 tablet 3 10/19/19 25 Active zinc gluconate 50 MG tablet Take 50 mg by mouth 1 (one) time each day Active Ascorbic Acid (vitamin C) 250 MG tablet Take 250 mg by mouth in the morning and 250 mg in the evening. Active cholecalcifero l (VITAMIN D-3) 25 MCG (1000 UT) capsule Take 1 capsule by mouth 1 (one) time each day 025 Discontinued simvastatin (ZOCOR) 20 MG tablet Take 20 mg by mouth every night 08/07/19 025 Discontinued Brilinta 90 MG tablet Take 1 tablet (90 mg total) by mouth in the morning and 1 tablet (90 mg total) in the evening. 60 tablet 3 06/26/19 22 025 Discontinued Active Problems Problem Noted Date Diagnosed Date [...] Encounters Date Type Department Care Team Description 12/02/2024 1:30 PM EDT Office Visit [facility] [address] [place] [phone] Chi Montelongo MD Chronic kidney disease, stage 2 (mild) (Primary Dx); Hypertensive renal disease; Type 2 diabetes mellitus with diabetic chronic kidney disease (HCC) 10/11/2024 Refill [facility] [address] [facility] [address] [place] [phone] MikeArely 10/07/2024 Refill [facility] [address] [facility] [address] [place] [phone] Chi Montelongo MD from Last 3 Months Immunizations Immunization Administration Dates Next Due Influenza, Recombinant, Quadrivalent, [...] Sign Reading Time Taken Comments Blood Pressure 114/71 12/02/2024 1:11 PM EDT Pulse 72 12/02/2024 1:11 PM EDT Temperature - - Respiratory Rate - - Oxygen Saturation 98% 12/08/2020 9:19 AM EDT Inhaled Oxygen Concentration - - Weight 90.7 kg (200 lb) 12/02/2024 1:11 PM EDT Height 172.7 cm (5' 8 ) 12/08/2020 9:19 AM EDT Body Mass Index 30.41 12/08/2020 9:19 AM EDT Plan of Treatment Upcoming Encounters Date Type Department Care Team (Late st Contact Info) Description 12/01/2025 1:30 PM EDT Office Visit [facility] [address] [place] [address] Chi Montelongo MD [address] [facility] [address] [place] [phone] Health Maintenance Due Date Last Done Comments Colorectal Cancer Screening: Annual FOBT 1998 Colorectal Cancer Screening: Colonoscopy 1998 Colorectal Cancer Screening: Sigmoidoscopy 1998 Pneumococcal Vaccine: 50+ Years (2 of 2 - PPSV23, PCV20, or PCV21) 06/19/2019 04/24/2019 Diabetes: Hemoglobin A1C 12/02/2024 021, 09/21/2019 Diabetes: Ophthalmology Exam 12/02/2024 Diabetes: Pedal Pulse Checked 12/02/2024 Diabetes: Sensory Foot Exam 12/02/2024 Diabetes: Visual Foot Exam 12/02/2024 Influenza Vaccine (#1) 2024 0, 01/26/2020, 04/24/2019 Pneumococcal Vaccine: Peds ( 0 to 5 Years) and At-Risk Patients (6 to 49 Years) Discontinued 04/24/2019 Hepatitis B Vaccine Aged Out No longe r eligible based on patient's age to complete this topic Procedures Procedure Name Priority Date/Time Associated Diagnosis Comments VITAMIN D 25 HYDROXY Routine 11/22/2024 10:14 AM EDT Chronic kidney disease, stage 2 (mild) Hypertensive renal disease Hypophosphatemia PROTEIN / CREATININE RATIO, URINE Routine 11/22/2024 10:14 AM EDT Chronic kidney disease, stage 2 (mild) Hypertensive renal disease Hypophosphatemia RENAL FUNCTION PANEL Routine 11/22/2024 10:14 AM EDT Chronic kidney disease, stage 2 (mild) Hypertensive renal disease Hypophosphatemia EXT RESULT ENTRY Routine 05/11/2020 from Last 3 Months or Most Recently Relevant to Health Maintenance Results * Urine Protein / creatinine ratio (11/22/2024 10:14 AM EDT) Creatinine, Ur 247.8 Not Estab. mg/dL [facility] Protein, Ur 17.4 Not Estab. mg/dL [facility] Urine Protein/Creatin ine Ratio 70 0 - 200 mg/g creat [facility] Urine specimen (specimen) Urine specimen obtained by clean catch procedure / Unknown 11/22/2024 10:14 AM EDT 11/22/2024 us Chi Montelongo MD LAB URINE ORDERABLES Final Resu lt [facility] [place] [address] [place] [address] * Vitamin D 25 hydroxy (11/22/2024 10:14 AM EDT) Vitamin D, 25-OH, Total 50.4 30.0 - 100.0 ng/mL [facility] Comment: Vitamin D deficiency has been defined by the [place] of Medicine and an Endocrine Society practice guideline as a level of serum 25-OH vitamin D less than 20 ng/mL (1,2). The Endocrine Society went on to further define vitamin D insufficiency as a level between 21 and 29 ng/mL (2). 1. IOM ([place] of Medicine). 2010. Dietary reference intakes for calcium and D. [place]: The National Academies Press. 2. Nancy MF, Amanda NC, Kain FRAZIER, et al. Evaluation, treatment, and prevention of vitamin D deficiency: an Endocrine Society clinical practice guideline. JCEM. 2010; 96(7):1911-30. Blood specimen (specimen) Venous blood / Unknown 11/22/2024 10:14 AM EDT 11/22/2024 us Chi Montelongo MD LAB BLOOD ORDERABLES Final Resu lt [facility] [address] [place] [address] * (ABNORMAL) Renal function panel (11/22/2024 10:14 AM EDT) Glucose 102(H) 70 - 99 mg/dL [facility] BUN 18 8 - 27 mg/dL [facility] Creatinine 1.16 0.76 - 1.27 mg/dL [facility] eGFR CKD-EPI CR 2020 66 >59 mL/min/1.7 3 [facility] BUN/Creatinine Ratio 16 10 - 24 [facility] Sodium 139 134 - 144 mmol/L [facility] Potassium 4.8 3.5 - 5.2 mmol/L [facility] Chloride 105 96 - 106 mmol/L [facility] Bicarbonate (CO2) 22 20 - 29 mmol/L [facility] Calcium 9.4 8.6 - 10.2 mg/dL [facility] Albumin 4.3 3.8 - 4.8 g/dL [facility] Phosphorus 2.2(L) 2.8 - 4.1 mg/dL [facility] Blood specimen (specimen) Venous blood / Unknown 11/22/2024 10:14 AM EDT 11/22/2024 Chi Montelongo MD LAB BLOOD ORDERABLES Final Resu lt [facility] [address] [place] [address] * (ABNORMAL) EXT RESULT ENTRY (05/11/2020) Sodium 139 137 - 147 Potassium 4.8 3.4 - 5.5 Chloride 104 99 - 108 Bicarbonate (CO2) 28 22 - 30 mmol/L Anion Gap 7 <=30 MMOL/L Glucose 137 60 - 200 BUN 16 4 - 21 mg/dL Creatinine 1.20 0.60 - 1.30 mg/dL Albumin 4.3 3.5 - 5.0 g/dL Calcium 9.2 8.7 - 10.7 mg/dL Phosphorus, Serum 2.0 eGFR Non-Afr Syrian 60 eGFR 70 Hemoglobin A1C 6.1(A) 4.0 - 6.0 05/11/2020 [facility] Provider LAB BLOOD ORDERABLES Marybeth l Result from Last 3 Months or Most Recently Relevant to Health Maintenance Insurance [facility] Medicare [facility] Medicare Care Teams Asset Management Analyst Relationship Specialty Start Date End Date Sharon Mcmahon Md [address] [place] [id number] PCP - General 12/02/24
== END 2024-12-21 09:42 | disposition home or self-care (01) ==
LOC: HO.HUSH 08:44
PROVIDERS: PCP Family Medicine; Visit Provider Urology
DX: R97.20 Elevated prostate specific antigen [PSA] (principal); N40.1 Benign prostatic hyperplasia with lower urinary tract symptoms; N13.8 Other obstructive and reflux uropathy
CPT/HCPCS: 99213; G2211

== ENCOUNTER → 2024-12-21 08:44 | Outpatient (BNVA) | payer MEDICARE, BC, OTHER, SELFPAY | PROVIDERS: PCP Family Medicine; Visit Provider Urology | DX: R97.20 Elevated prostate specific antigen [PSA] (principal); N40.1 Benign prostatic hyperplasia with lower urinary tract symptoms; N13.8 Other obstructive and reflux uropathy; I10 Essential (primary) hypertension | CPT/HCPCS: 99212 ==